=== PATIENT | male | born 1980 | race Caucasian/White ===

== ENCOUNTER 2017-01-01 08:30 | Day surgery (SDC) | payer BC ==
[2017-01-01] MEDS ORDERED: Propofol 200 MG/20 ML SDV ONE (10:20)
[2017-01-01 10:35] VITALS: BP 105/69
--- NOTE | 2017-01-01 15:07 | OR ---
DATE OF OPERATION: 01/01/2017 PREOPERATIVE DIAGNOSIS: Right upper quadrant epigastric pain. POSTOPERATIVE DIAGNOSES: 1. Mild gastritis. 2. A small sliding hiatal hernia. OPERATION: Esophagogastroduodenoscopy. COMPLICATIONS: None. DRAINS: None. SPECIMENS: None. ESTIMATED BLOOD LOSS: Zero. ANESTHESIA: General propofol anesthesia. INDICATION: Mr. German is a 36-year-old gentleman who I am investigating for right upper quadrant pain and epigastric pain. His symptoms are compatible with either peptic ulcer disease or biliary dyskinesia. The above-mentioned procedure was explained. The risks, benefits, complications were explained. Patient understood and agreed and was brought to the operating room. DESCRIPTION OF PROCEDURE: The patient was brought to the operating room, placed in a left lateral decubitus position on the operating room table. Satisfactory general propofol anesthesia was administered. We began by placing the endoscope by direct vision into the oral cavity, through a mouth guard, and advancing this to the level of the second portion of the duodenum. The duodenum was then visualized and then careful evaluation of the duodenum was performed on withdrawal, which revealed no significant findings in the second portion or bulb. Next, careful evaluation of the stomach revealed some striped erythematous granular appearing mild gastritis of the antrum. The remainder of the stomach was within normal limits. Retroflexion was then performed, which revealed a small 1-2 cm sliding-type hiatal hernia. The stomach was then decompressed and the endoscope was then withdrawn to the GE junction, which was normal. The remainder of the esophagus was normal. The endoscope was then withdrawn, and the patient tolerated the procedure well. The patient was woken in the OR and taken to the PACU for recovery. J LUIS /[id number]
== END 2017-01-01 11:30 | disposition home or self-care (01) ==
LOC: LB.SDS 08:30
PROVIDERS: ATTEND Surgery
DX: K29.50 Unspecified chronic gastritis without bleeding (principal); K44.9 Diaphragmatic hernia without obstruction or gangrene; Z79.899 Other long term (current) drug therapy
CPT/HCPCS: 43235; J2704